=== PATIENT | male | born 1965 | race American Indian/Alaskan Native ===

== ENCOUNTER 2017-07-26 12:53 | Emergency (ER) | payer SELFPAY ==
[~2017-07-26 12:53] MED LIST: QUELICIN ONE; VERSED IV ONE
[2017-07-26] MEDS ORDERED: ATIVAN ONE (13:06)
[2017-07-26] MEDS ORDERED: NACL 0.9% 1000 ML 1,000 ML IV ONE (13:07)
[2017-07-26] MEDS ORDERED: KEPPRA 1,000 MG/NS 0.75% 100ML 1,000 MG/100 ML BAG IV ONE ×2 (13:07)
--- NOTE | 2017-07-26 13:18 | Emergency Department Report ---
ED Seizure HPI - General Chief Complaint: Seizure Stated Complaint: SEIZURE Time Seen by Provider: 07/26/17 13:07 Source: EMS Mode of arrival: Stretcher Limitations: Altered Mental Status - History of Present Illness Initial Comments: Patient is a 52-year-old male with 3 seizures today. First seizure occurred in line at [employer]. Second occurred with EMS. Patient was given 2 mg of IM Ativan. Third occurred here in the emergency department. At this point I'm not been able to obtain history from the patient MD Complaint: seizure Description of Episode: tonic-clonic movement -: minutes(s) Witnessed:: Yes Trauma: No - Related Data Home Medications Medication Instructions Recorded Confirmed Last Taken Unobtainable 07/26/17 07/26/17 Unknown Allergies Allergy/AdvReac Type Severity Reaction Status Date / Time Unable to Assess Allergy Verified 07/26/17 13:50 ED Review of Systems ROS: Stated complaint: SEIZURE Other details as noted in HPI Comment: Unobtainable due to pts medical conditions ED Past Medical Hx - Social History Smoking Status: Never Smoker Substance Use Type: None - Medications Home Medications: Home Medications Medication Instructions Recorded Confirmed Last Taken Type Unobtainable 07/26/17 07/26/17 Unknown History ED Physical Exam - General Limitations: Altered Mental Status General appearance: postictal - Head Head exam: Present: atraumatic, normocephalic - Eye Eye exam: Present: normal appearance. Absent: scleral icterus, conjunctival injection - ENT ENT exam: Present: mucous membranes moist - Neck Neck exam: Present: normal inspection - Respiratory Respiratory exam: Present: normal lung sounds bilaterally. Absent: respiratory distress, wheezes, rales - Cardiovascular Cardiovascular Exam: Present: normal rhythm, tachycardia. Absent: systolic murmur, diastolic murmur, rubs, gallop - GI/Abdominal GI/Abdominal exam: Present: soft, normal bowel sounds - Rectal Rectal exam: Present: deferred - Extremities Exam Extremities exam: Present: normal inspection - Back Exam Back exam: Present: normal inspection - Neurological Exam Neurological exam: Present: alert, oriented X3 - Psychiatric Psychiatric exam: Present: normal affect, normal mood - Skin Skin exam: Present: warm, dry, intact, normal color. Absent: rash ED Course Vital Signs 07/26/17 07/26/17 07/26/17 12:54 13:32 13:45 Temperature 100.8 F H Pulse Rate 118 H 118 H Respiratory 14 22 Rate Blood Pressure 200/96 167/73 Blood Pressure 158/68 [Left] O2 Sat by Pulse 98 98 99 Oximetry 07/26/17 07/26/17 07/26/17 14:00 14:16 14:30 Temperature Pulse Rate 117 H 119 H 120 H Respiratory 25 H 27 H 28 H Rate Blood Pressure 158/68 174/62 152/91 Blood Pressure [Left] O2 Sat by Pulse Oximetry 07/26/17 07/26/17 07/26/17 14:46 14:47 15:00 Temperature Pulse Rate 133 H 108 H 112 H Respiratory 11 L 19 Rate Blood Pressure 212/132 174/99 176/102 Blood Pressure [Left] O2 Sat by Pulse 99 100 Oximetry 07/26/17 07/26/17 07/26/17 15:16 15:48 15:57 Temperature 98.8 F Pulse Rate 132 H Respiratory 23 21 Rate Blood Pressure 174/87 149/112 Blood Pressure [Left] O2 Sat by Pulse 93 100 Oximetry 07/26/17 07/26/17 16:00 16:16 Temperature Pulse Rate 103 H 129 H Respiratory 17 32 H Rate Blood Pressure 144/86 174/99 Blood Pressure [Left] O2 Sat by Pulse 100 100 Oximetry - Intubation Time Out Performed: No Sedative: Etomidate Paralytic: Succinylcholine Laryngoscope: fiberoptic video scope Size: 4 ET Tube Size: 7.5 Tube Secured Depth (cm): 22 Tube Secured Location: teeth Tube Placement Confirmation: visualized tube passing t, equal breath sounds bilat, no breath sounds over epi, confirmation by capnometr Patient Tolerated Procedure: well Intubation Complications: none ED Medical Decision Making - Lab Data Result diagrams: 07/26/17 Unknown 07/26/17 Unknown Laboratory Results - last 24 hr 07/26/17 07/26/17 07/26/17 12:59 Unknown Unknown WBC 25.3 H RBC 4.40 Hgb 13.5 Hct 43.1 MCV 98 H MCH 31 MCHC 31 L RDW 15.0 Plt Count 308 Lymph # Estimator Printing Plate Making Add Manual Diff Complete Total Counted 100 Seg Neuts % (Manual) 36.0 L Band Neutrophils % 1.0 Lymphocytes % (Manual) 55.0 H Reactive Lymphs % (Man) 2.0 Monocytes % (Manual) 6.0 Eosinophils % (Manual) 0 Basophils % (Manual) 0 Metamyelocytes % 0 Myelocytes % 0 Promyelocytes % 0 Blast Cells % 0 Nucleated RBC % Not Reportable Seg Neutrophils # Man 9.1 H Band Neutrophils # 0.3 Lymphocytes # (Manual) 13.9 H Abs React Lymphs (Man) 0.5 Monocytes # (Manual) 1.5 H Eosinophils # (Manual) 0.0 Basophils # (Manual) 0.0 Metamyelocytes # 0.0 Myelocytes # 0.0 Promyelocytes # 0.0 Blast Cells # 0.0 WBC Morphology Not Reportable Hypersegmented Neuts Not Reportable Hyposegmented Neuts Not Reportable Hypogranular Neuts Not Reportable Smudge Cells Not Reportable Toxic Granulation Not Reportable Toxic Vacuolation Not Reportable Dohle Bodies Not Reportable Pelger-Huet Anomaly Not Reportable Valentino Rods Not Reportable Platelet Estimate Not Reportable Clumped Platelets Not Reportable Plt Clumps, EDTA Not Reportable Large Platelets Not Reportable Giant Platelets Not Reportable Platelet Satelliting Not Reportable Plt Morphology Comment Not Reportable RBC Morphology Normal Dimorphic RBCs Not Reportable Polychromasia Not Reportable Hypochromasia Not Reportable Poikilocytosis Not Reportable Anisocytosis Not Reportable Microcytosis Not Reportable Macrocytosis Not Reportable Spherocytes Not Reportable Pappenheimer Bodies Not Reportable Sickle Cells Not Reportable Target Cells Not Reportable Tear Drop Cells Not Reportable Ovalocytes Not Reportable Helmet Cells Not Reportable [place] Bodies Not Reportable [place] Rings Not Reportable [place] Cells Not Reportable Bite Cells Not Reportable Crenated Cell Not Reportable Elliptocytes Not Reportable Acanthocytes (Spur) Not Reportable Rouleaux Not Reportable Hemoglobin C Crystals Not Reportable Schistocytes Not Reportable Malaria parasites Not Reportable Wan Bodies Not Reportable Hem Pathologist Commnt No Sodium 144 Potassium 3.9 Chloride 98.6 Carbon Dioxide 7 L* Anion Gap 42 BUN 12 Creatinine 0.9 Estimated GFR > 60 BUN/Creatinine Ratio 13 Glucose 276 H POC Glucose 223 H Calcium 9.7 Total Bilirubin 0.30 AST 50 H ALT 52 Alkaline Phosphatase 86 Total Protein 8.4 H Albumin 4.8 Albumin/Globulin Ratio 1.3 - Medical Decision Making Patient immediately given 2 mg of IV Ativan and 1 g of Keppra on arrival. Plan check labs and CT and plan to reassess. We will need to observe for several hours although given multiple seizures even if none seizure disorder likely admission for breakthrough seizures. Patient remained postictal for a prolonged period of time. His mental status never improved. Decided to intubate the patient. Patient intubated with 20 mg of etomidate and 160 mg of succinylcholine. Intubated without difficulty. Additional 5 mg of Versed given for sedation. Plan to get the patient's head CT done. CT shows 2.7 x 2.7 cm parietal-occipital bleed in the left brain. Call immediately placed to [facility] for possible transfer. [facility] accepted patient - Dr. Hickman. Patient to go to [facility]. Portions of this chart were dictated with dictation software. There may be dictation errors contained within this note. Critical Care Time: Yes (100) Critical care attestation.: If time is entered above; I have spent that time in minutes in the direct care of this critically ill patient, excluding procedure time. Critical Care Time: 100 ED Disposition Clinical Impression: Intracranial hemorrhage Disposition: [id number]/TX-[id number] ANOTHER TYPE HLTHCARE Is pt being admited?: No Condition: Stable Referrals: PRIMARY CARE, [Primary Care Provider] - 3-5 Days
[2017-07-26 13:49] LABS: Hematocrit 43.1 % (35.5-45.6); Hemoglobin 13.5 gm/dl (11.8-15.2); Mean Corpuscular HGB Conc 31 % (32-34); Mean Corpuscular Hemoglobin 31 pg (28-32); Mean Corpuscular Volume 98 fl (84-94); Platelet Count 308 K/mm3 (140-440)
[2017-07-26 13:50] LABS: White Blood Count 25.3 K/mm3 (4.5-11.0)
[2017-07-26 14:00] LABS: Alanine Aminotransferase 52 units/L (7-56); Albumin 4.8 g/dL (3.9-5); Albumin/Globulin Ratio 1.3 %; Alkaline Phosphatase 86 units/L (35-129); BUN/Creatinine Ratio 13; Blood Urea Nitrogen 12 mg/dL (9-20); Calcium 9.7 mg/dL (8.4-10.2); Chloride 98.6 mmol/L (98-107); Glucose 276 mg/dL (75-100); Potassium 3.9 mmol/L (3.6-5.0); Sodium 144 mmol/L (137-145); Total Protein 8.4 g/dL (6.3-8.2)
[2017-07-26 14:08] LABS: Anion Gap 42 mmol/L
[2017-07-26 14:12] LABS: Carbon Dioxide 7 mmol/L (22-30)
[2017-07-26] MEDS ORDERED: ATIVAN IV ONE (14:15)
[2017-07-26 14:47] LABS: Basophils % (Manual) 0 % (0.0-1.8); Blastocytes % (Manual) 0 %; Eosinophils % (Manual) 0 % (0.0-4.3)
[2017-07-26 14:48] LABS: Diff Status Complete; RBC Morphology Normal
[2017-07-26] MEDS ORDERED: SUBLIMAZE IV ONE (14:56)
[2017-07-26] MEDS ORDERED: VERSED IV NR (15:00)
[2017-07-26] MEDS ORDERED: DIPRIVAN 10 MG/ML 1,000 MG/100 ML BOTTLE IV SCH (15:00)
[2017-07-26] MEDS ORDERED: SUBLIMAZE ONE (15:00)
[2017-07-26] MEDS ORDERED: VASELINE LIP THERAPY TP PRN (15:00)
[2017-07-26] MEDS ORDERED: fentaNYL DRIP Premix 2,000 MCG/100 ML BAG IV SCH (15:00)
[2017-07-26] MEDS ORDERED: ARTIFICIAL TEARS OPHTH OINT OU PRN (15:00)
--- NOTE | 2017-07-26 15:16 | XRay Report ---
Single view chest: History: Seizure, Findings: Cardiomegaly. Trachea is midline. No consolidation, pneumothorax or pleural effusion. Retrocardiac lung left lower lobe cannot be evaluated. Impression: No definite acute lung changes.
--- NOTE | 2017-07-26 16:05 | Cat Scan Report ---
CT scan of head without IV contrast: History: Seizure. Findings: Ventricles are normal in size and midline in location. Focal intracerebral left occipital hematoma measuring 2.7 x 2.5 cm. Edema around the hematoma. No extra-axial fluid collection. No hemorrhage in the subarachnoid spaces. No intraventricular hemorrhage. No evidence of acute ischemia. Normal sinuses and mastoid air cells. Impression: Acute left occipital hematoma. Dr. Linares was informed of the findings at 4 PM on 07/26/17. Magno.
[2017-07-26 16:29] LABS: Urine Drugs of Abuse Note Disclamer
[2017-07-26 16:37] LABS: ISTAT Base Excess -5; ISTAT HCO3 22.3; ISTAT PCO2 47.9 (35-45); ISTAT PH 7.276 (7.35-7.45); ISTAT PO2 316 (80-105); ISTAT SO2 100; ISTAT TCO2 24
[2017-07-26 16:51] LABS: Bacteria,Urine 1+ /HPF (Negative); Bilirubin,Urine NEG (Negative); Blood,Urine MOD (Negative); Ketones,Urine NEG (Negative); Leukocyte Esterase,Urine NEG (Negative); Mucus,Urine FEW /HPF; Nitrite,Urine NEG (Negative); Uric Acid Crystals,Urine 3+; Urobilinogen,Urine < 2.0 mg/dL (<2.0)
[2017-07-26 17:32] VITALS: BP 178/109
--- NOTE | 2017-07-27 09:53 | XRay Report ---
AP CHEST: HISTORY: Endotracheal tube placement The endotracheal tube terminates 4 cm superior to the destiney. Heart and mediastinal structures are within normal limits. Minor bibasilar atelectatic changes are noted. No pleural effusion or pneumothorax. IMPRESSION: Adequate endotracheal tube placement. Bibasilar opacities most consistent with atelectasis.
== END 2017-07-26 17:47 | disposition other institution (70) ==
LOC: ED 12:53
DX: I62.9 Nontraumatic intracranial hemorrhage, unspecified (principal)
CPT/HCPCS: 31500; 36415; 51702; 70450; 71010; 80053; 80307; 81001; 82140; 82803; 82962; 85007; 85025; 87070; 87205; 93005; 93010; 96361; 96365; 96375; 99291; 99292; G0480; J0330; J1953; J2060; J2250; J2704; J3010; J7030; 80320; 94002